=== PATIENT | male | born 1995 | race Two or more races ===

== ENCOUNTER 2024-08-25 15:11 | Observation (INO) | payer OTHER ==
[2024-08-25] MEDS ORDERED: ACETAMINOPHEN 500 MG TABLET (FP) PO ONE (17:04)
[2024-08-25 17:21] LABS: ABSOLUTE IMMATURE GRANULOCYTES 0.01 x10^3/uL (0.0-0.031); BASOPHILS # 0.09 x10^3/uL (0.01-0.08); EOSINOPHIL % 7.2 % (0.8-7.0); EOSINOPHILS # 0.44 x10^3/uL (0.04-0.54); HEMATOCRIT 42.3 % (40.1-51.0); HEMOGLOBIN 13.8 g/dL (13.7-17.5); MCHC 32.6 g/dl (32.3-36.5); MEAN CELL VOLUME 81.2 fl (79.0-92.2); MEAN PLT VOLUME 9.3 fl (9.4-12.4); MONOCYTE # 0.39 x10^3/uL (0.30-0.82); MONOCYTE % 6.4 % (5.3-12.2); PLATELET COUNT 208 x10^3/uL (163-337); RDW 13.8 % (11.9-15.3)
[2024-08-25] MEDS ORDERED: MECLIZINE HCL 25 MG TABLET (FP) ONE ×2 (17:27→18:59)
[2024-08-25] MEDS ORDERED: METOCLOPRAMIDE HCL INJECTION 10 MG/2 ML VIAL ONE (17:28)
[2024-08-25] MEDS ORDERED: ACETAMINOPHEN 325 MG TABLET (FP) ONE (17:28)
[2024-08-25 17:30] LABS: INR 1.02 (0.83-1.09); PROTHROMBIN TIME (PATIENT) 11.2 SEC (9.7-13.0)
[2024-08-25 17:33] LABS: ACTIVATED PTT 28.8 SECONDS (25.2-36.5)
[2024-08-25] MEDS: SODIUM CHLORIDE 0.9% 500 ML INFUS.BAG IV ONE ×2 (17:48→19:08)
[2024-08-25] MEDS: MECLIZINE HCL 25 MG TABLET (FP) PO ONE ×2 (17:48→19:08)
[2024-08-25] MEDS: ACETAMINOPHEN 1000 MG/100 ML BAG IVPB ONE (17:49)
[2024-08-25] MEDS: METOCLOPRAMIDE HCL INJECTION 10 MG/2 ML VIAL IVPB ONE (17:49)
[2024-08-25 18:09] LABS: POTASSIUM 4.2 mmol/L (3.5-5.1)
[2024-08-25 18:11] LABS: CALCIUM 9.8 mg/dL (8.5-10.1)
[2024-08-25 18:12] LABS: BLOOD UREA NITROGEN 11.8 mg/dL (7-18); MAGNESIUM 1.9 mg/dL (1.8-2.4)
[2024-08-25 18:15] LABS: PHOSPHOROUS 3.9 mg/dL (2.5-4.9)
[2024-08-25 18:16] LABS: BILIRUBIN,TOTAL 0.4 mg/dL (0.2-1); TOT PROT 7.2 g/dl (6.4-8.2)
[2024-08-25 19:17] LABS: HCV DIAGNOSTIC IN-HOUSE W/RFLX NON-REACTIVE (NONREACTIVE); HIV INTERPRETATION NEGATIVE (NEGATIVE)
[2024-08-25] MEDS ORDERED: NITROGLYCERIN SUBLINGUAL 1/150 0.4 MG TAB SL PRN (23:40)
[2024-08-26] MEDS ORDERED: ASPIRIN 81 MG CHEWABLE TABLETS ONE ×2 (00:38→00:46)
[2024-08-26] MEDS ORDERED: ENOXAPARIN NA (PORCINE) 40 MG/0.4 ML DISP.SYRIN SQ ONE (00:39)
[2024-08-26] MEDS: ASPIRIN 81 MG CHEWABLE TABLETS PO ONE (00:55)
[2024-08-26] MEDS: ENOXAPARIN NA (PORCINE) 30 MG/0.3 ML DISP.SYRIN SQ ONE ×2 (00:55→05:50)
[2024-08-26] MEDS: SODIUM CHLORIDE 1,000 ML IV SCH ×2 (01:35→05:29)
[2024-08-26] MEDS: MECLIZINE HCL 12.5 MG TABLET PO ONE (02:30)
[2024-08-26] MEDS ORDERED: ATROPINE SULFATE 1 MG/10 ML DISP.SYRIN IVPUSH PRN (03:09)
[2024-08-26] MEDS: MIDODRINE HCL 5 MG TABLET PO SCH (05:31)
[2024-08-26] MEDS: ASPIRIN 81 MG CHEWABLE TABLETS PO SCH (09:06)
[2024-08-26 10:21] LABS: ABSOLUTE IMMATURE GRANULOCYTES 0.01 x10^3/uL (0.0-0.031); BASOPHILS # 0.07 x10^3/uL (0.01-0.08); EOSINOPHIL % 8.3 % (0.8-7.0); HEMATOCRIT 38.3 % (40.1-51.0); HEMOGLOBIN 12.2 g/dL (13.7-17.5); MCHC 31.9 g/dl (32.3-36.5); MEAN CELL VOLUME 81.5 fl (79.0-92.2); MEAN PLT VOLUME 10.1 fl (9.4-12.4); MONOCYTE # 0.28 x10^3/uL (0.30-0.82); MONOCYTE % 5.8 % (5.3-12.2); PLATELET COUNT 202 x10^3/uL (163-337); RDW 14.1 % (11.9-15.3)
[2024-08-26 10:27] VITALS: BP 102/60; PULSE 43; RESP 16; TEMP 98.4
[2024-08-26 10:42] LABS: POTASSIUM 3.9 mmol/L (3.5-5.1)
[2024-08-26 10:44] LABS: CALCIUM 9.4 mg/dL (8.5-10.1)
[2024-08-26 10:45] LABS: ALBUMIN 3.4 g/dl (3.4-5.0); BLOOD UREA NITROGEN 9.6 mg/dL (7-18)
[2024-08-26 10:48] LABS: CREATININE 0.8 mg/dL (0.55-1.3)
[2024-08-26 10:50] LABS: TOT PROT 5.7 g/dl (6.4-8.2)
[2024-08-26 11:04] LABS: BILIRUBIN,TOTAL 0.6 mg/dL (0.2-1)
[2024-08-26] MEDS: CYANOCOBALAMIN (VITAMIN B-12) 1000 MCG/1 ML VIAL IM ONE (14:27)
[2024-08-26] MEDS ORDERED: ATORVASTATIN CA 40 MG TABLET (FP) PO SCH (22:00)
[2024-08-26] MEDS ORDERED: ENOXAPARIN NA (PORCINE) 40 MG/0.4 ML DISP.SYRIN SQ SCH (23:50)
== END 2024-08-26 15:10 | disposition home or self-care (01) ==
LOC: JER 15:11 → JERBED 22:31 → J4W 08-26 01:03
PROVIDERS: ADMIT Hospitalist; ATTEND Internal Medicine
PROC: 3E033NZ Introduction of Analgesics, Hypnotics, Sedatives into Peripheral Vein, Percutaneous Approach (ICD-10-PCS; principal; 2024-08-25)
PROC: 3E023GC Introduction of Other Therapeutic Substance into Muscle, Percutaneous Approach (ICD-10-PCS; 2024-08-25)
PROC: 3E0337Z Introduction of Electrolytic and Water Balance Substance into Peripheral Vein, Percutaneous Approach (ICD-10-PCS; 2024-08-25)
DX: R00.1 Bradycardia, unspecified (principal); I95.9 Hypotension, unspecified; G93.1 Anoxic brain damage, not elsewhere classified; F79 Unspecified intellectual disabilities; H02.402 Unspecified ptosis of left eyelid; Z91.013 Allergy to seafood
CPT/HCPCS: 0241U-QW; 36415; 70450-TC; 71045-TC-FY; 80053; 82607; 82962; 83735; 84100; 84439; 84443; 84484; 85025; 85610; 85730; 86618; 86803; 87389; 93005; 93010; 96361; 96372; 96374; 96375; 99285-25; G0378

== ENCOUNTER 2024-11-07 20:42 | Observation (INO) | payer OTHER ==
[2024-11-07] MEDS ORDERED: LORazepam 2 MG/ML SDV VIAL ONE (20:47)
[2024-11-07 21:19] LABS: ABSOLUTE IMMATURE GRANULOCYTES 0.01 x10^3/uL (0.0-0.031); BASOPHILS # 0.05 x10^3/uL (0.01-0.08); EOSINOPHIL % 6.0 % (0.8-7.0); EOSINOPHILS # 0.38 x10^3/uL (0.04-0.54); MCHC 31.7 g/dl (32.3-36.5); MEAN CELL VOLUME 81.9 fl (79.0-92.2); MEAN PLT VOLUME 9.7 fl (9.4-12.4); MONOCYTE # 0.37 x10^3/uL (0.30-0.82); MONOCYTE % 5.9 % (5.3-12.2); RDW 13.9 % (11.9-15.3)
[2024-11-07 21:20] LABS: BG HCT 45.0 % (35.4-49); VENOUS BASE EXCESS 0.8 mmol/L (-2-2); VENOUS O2 SATURATION 53.9 % (70-80); VENOUS PCO2 50.5 mmHg (38-52); VENOUS PH 7.351 (7.310-7.410)
[2024-11-07 21:26] LABS: INR 1.01 (0.83-1.09); PROTHROMBIN TIME (PATIENT) 11.1 SEC (9.7-13.0)
[2024-11-07 21:29] LABS: ACTIVATED PTT 24.5 SECONDS (25.2-36.5)
[2024-11-07 21:33] LABS: GLUCOSE,RANDOM 111.0 mg/dL (74-106); TOT PROT 7.2 g/dl (6.4-8.2)
[2024-11-07 21:34] LABS: CO2 25.0 mmol/L (21-32)
[2024-11-07 21:35] LABS: ALK PHOS 89.0 U/L (40-150)
[2024-11-07 21:38] LABS: SGOT/AST 21.0 U/L (5-34); SGPT/ALT 14.0 U/L (0-55)
[2024-11-07 21:39] LABS: CREATININE 0.96 mg/dL (0.55-1.3)
[2024-11-07] MEDS ORDERED: MAGNESIUM SULFATE IN WATER 2 GM/50 ML IVPB IVPB ONE (22:13)
[2024-11-07] MEDS: SODIUM CHLORIDE 0.9% 500 ML INFUS.BAG IV ONE (22:15)
[2024-11-07] MEDS: MAGNESIUM SULF 50% (8.12 MEQ/2 ML-1 GM VIAL) IVPB ONE (22:15)
[2024-11-08] MEDS ORDERED: LORazepam 2 MG/ML SDV VIAL IVPUSH PRN (02:03)
[2024-11-08] MEDS: levETIRAcetam 500 MG/5 ML INJECTION VIAL IVPB ONE (02:43)
[2024-11-08 03:33] VITALS: BMI 16.2
[2024-11-08 08:35] LABS: URINE APPEARANCE CLEAR; URINE BILIRUBIN NEGATIVE (NEGATIVE); URINE COLOR YELLOW; URINE GLUCOSE (UA) NEGATIVE (NEGATIVE); URINE KETONE NEGATIVE (NEGATIVE); URINE LEUK ESTERASE NEGATIVE (NEGATIVE); URINE NITRITE NEGATIVE (NEGATIVE); URINE PROTEIN NEGATIVE (NEGATIVE); URINE UROBILINOGEN 0.2 mg/dL (0.2-1.0)
[2024-11-08 08:45] LABS: MCHC 31.4 g/dl (32.3-36.5); MEAN CELL VOLUME 83.0 fl (79.0-92.2); MEAN PLT VOLUME 9.4 fl (9.4-12.4); RDW 14.1 % (11.9-15.3)
[2024-11-08 09:03] LABS: COCAINE, UR NEGATIVE (NEGATIVE)
[2024-11-08 09:04] LABS: OPIATES, URI NEGATIVE (NEGATIVE); PHENCYCLIDINE,URINE NEGATIVE (NEGATIVE); URINE AMPHETAMINES NEGATIVE (NEGATIVE); URINE BARBITURATES NEGATIVE (NEGATIVE); URINE BENZODIAZEPINES NEGATIVE (NEGATIVE)
[2024-11-08 09:05] LABS: METHADONE, UR NEGATIVE (NEGATIVE)
[2024-11-08 09:21] LABS: CO2 25.0 mmol/L (21-32); TOT PROT 6.2 g/dl (6.4-8.2)
[2024-11-08 09:23] LABS: ALK PHOS 72.0 U/L (40-150)
[2024-11-08 09:26] LABS: CREATININE 0.92 mg/dL (0.55-1.3); SGOT/AST 17.0 U/L (5-34); SGPT/ALT 13.0 U/L (0-55)
[2024-11-08 09:30] LABS: GLUCOSE,RANDOM 99.0 mg/dL (74-106)
[2024-11-08] MEDS ORDERED: levETIRAcetam 500 MG TABLET (FP) PO SCH (10:00)
[2024-11-08] MEDS: ENOXAPARIN NA (PORCINE) 40 MG/0.4 ML DISP.SYRIN SQ SCH (10:33)
[2024-11-08] MEDS: SODIUM CHLORIDE 0.9% 500 ML INFUS.BAG IV ONE (10:36)
[2024-11-08] MEDS: levETIRAcetam 500 MG TABLET (FP) PO SCH (13:39)
[2024-11-08 13:55] LABS: HIV INTERPRETATION NEGATIVE (NEGATIVE)
[2024-11-08 13:58] LABS: HCV DIAGNOSTIC IN-HOUSE W/RFLX NON-REACTIVE (NONREACTIVE)
[2024-11-09 14:17] VITALS: BP 89/67; PULSE 47; RESP 18; TEMP 97.7
== END 2024-11-09 14:43 | disposition home or self-care (01) ==
LOC: JER 20:42 → JERBED 23:23 → OBSVTOIN 11-08 01:50 → INTOOBSV 11-08 01:50 → J7W 11-08 02:19
PROVIDERS: ADMIT Hospitalist; ATTEND Student in an Organized Health Care Education/Training Program
PROC: 3E0337Z Introduction of Electrolytic and Water Balance Substance into Peripheral Vein, Percutaneous Approach (ICD-10-PCS; principal; 2024-11-07)
PROC: 3E033GC Introduction of Other Therapeutic Substance into Peripheral Vein, Percutaneous Approach (ICD-10-PCS; 2024-11-07)
PROC: 3E033NZ Introduction of Analgesics, Hypnotics, Sedatives into Peripheral Vein, Percutaneous Approach (ICD-10-PCS; 2024-11-07)
DX: R56.9 Unspecified convulsions (principal); F79 Unspecified intellectual disabilities; G93.1 Anoxic brain damage, not elsewhere classified; Z90.49 Acquired absence of other specified parts of digestive tract; Z87.891 Personal history of nicotine dependence
CPT/HCPCS: 36415; 70450-TC; 71045-TC-FY; 80053; 80307; 81003; 82803; 82962; 83605; 83735; 84100; 84484; 85025; 85027; 85610; 85730; 86803; 86850; 86900; 86901; 87086; 87389; 93005; 93010; 93306-TC; 95816; 99285-25; G0378

== ENCOUNTER 2024-12-03 12:00 | Inpatient (IN) | payer OTHER ==
[2024-12-03] MEDS ORDERED: MIDAZOLAM HCL 2 MG/2 ML SINGLE DOSE VIAL ONE ×2 (12:03→12:06)
[2024-12-03] MEDS: MIDAZOLAM HCL 2 MG/2 ML SINGLE DOSE VIAL IVPUSH ONE (12:08)
[2024-12-03] MEDS ORDERED: levETIRAcetam 500 MG/5 ML INJECTION VIAL IVPB ONE (12:10)
[2024-12-03] MEDS: levETIRAcetam 500 MG/5 ML INJECTION VIAL IVPB ONE (12:17)
[2024-12-03 13:13] LABS: BG HCT 42.0 % (35.4-49); VENOUS BASE EXCESS -2.9 mmol/L (-2-2); VENOUS O2 SATURATION 75.1 % (70-80); VENOUS PCO2 47.4 mmHg (38-52); VENOUS PH 7.314 (7.310-7.410)
[2024-12-03 13:35] LABS: ABSOLUTE IMMATURE GRANULOCYTES 0.01 x10^3/uL (0.0-0.031); BASOPHILS # 0.06 x10^3/uL (0.01-0.08); EOSINOPHIL % 4.8 % (0.8-7.0); EOSINOPHILS # 0.25 x10^3/uL (0.04-0.54); MCHC 31.6 g/dl (32.3-36.5); MEAN CELL VOLUME 82.4 fl (79.0-92.2); MEAN PLT VOLUME 9.2 fl (9.4-12.4); MONOCYTE # 0.44 x10^3/uL (0.30-0.82); MONOCYTE % 8.5 % (5.3-12.2); RDW 13.9 % (11.9-15.3)
[2024-12-03 13:43] LABS: INR 1.13 (0.83-1.09); PROTHROMBIN TIME (PATIENT) 12.4 SEC (9.7-13.0)
[2024-12-03 13:46] LABS: ACTIVATED PTT 27.5 SECONDS (25.2-36.5)
[2024-12-03 13:57] LABS: GLUCOSE,RANDOM 67.0 mg/dL (74-106); TOT PROT 6.4 g/dl (6.4-8.2)
[2024-12-03 13:58] LABS: CO2 24.0 mmol/L (21-32)
[2024-12-03 14:00] LABS: ALK PHOS 73.0 U/L (40-150)
[2024-12-03 14:02] LABS: SGOT/AST 15.0 U/L (5-34); SGPT/ALT 7.0 U/L (0-55)
[2024-12-03 14:03] LABS: CREATININE 0.91 mg/dL (0.55-1.3)
[2024-12-03] MEDS ORDERED: DEXTROSE 50%-WATER 25 GM/50 ML DISP.SYRIN ONE (14:19)
[2024-12-03] MEDS: DEXTROSE 50%-WATER 25 GM/50 ML DISP.SYRIN IVPUSH ONE (14:25)
[2024-12-03] MEDS: SODIUM CHLORIDE 0.9% 500 ML INFUS.BAG IV ONE (14:52)
[2024-12-03] MEDS ORDERED: diazePAM RECTAL GEL 5 MG KIT (PRE-CALIBRATED) RC PRN (15:30)
[2024-12-03] MEDS: SODIUM CHLORIDE 1,000 ML IV SCH (16:06)
[2024-12-03 17:05] VITALS: BMI 18.1
[2024-12-03] MEDS: levETIRAcetam 500 MG TABLET (FP) PO SCH (21:22)
[2024-12-03 22:42] LABS: URINE APPEARANCE CLEAR; URINE BILIRUBIN NEGATIVE (NEGATIVE); URINE COLOR YELLOW; URINE GLUCOSE (UA) NEGATIVE (NEGATIVE); URINE KETONE NEGATIVE (NEGATIVE); URINE LEUK ESTERASE NEGATIVE (NEGATIVE); URINE NITRITE NEGATIVE (NEGATIVE); URINE PROTEIN NEGATIVE (NEGATIVE); URINE UROBILINOGEN 1.0 mg/dL (0.2-1.0)
[2024-12-03 23:36] LABS: COCAINE, UR NEGATIVE (NEGATIVE)
[2024-12-03 23:37] LABS: METHADONE, UR NEGATIVE (NEGATIVE); PHENCYCLIDINE,URINE NEGATIVE (NEGATIVE); URINE AMPHETAMINES NEGATIVE (NEGATIVE); URINE BARBITURATES NEGATIVE (NEGATIVE); URINE BENZODIAZEPINES POSITIVE (NEGATIVE)
[2024-12-03 23:53] LABS: OPIATES, URI NEGATIVE (NEGATIVE)
[2024-12-04] MEDS ORDERED: LORazepam 2 MG/ML SDV VIAL IVPUSH PRN (02:28)
[2024-12-04] MEDS: LORazepam 2 MG/ML SDV VIAL IVPUSH ONE (03:07)
[2024-12-04] MEDS ORDERED: SODIUM CHLORIDE 1,000 ML IV SCH (08:10)
[2024-12-04] MEDS ORDERED: diazePAM RECTAL GEL 5 MG KIT (PRE-CALIBRATED) RC PRN (08:10)
[2024-12-04 08:21] LABS: ABSOLUTE IMMATURE GRANULOCYTES 0.01 x10^3/uL (0.0-0.031); BASOPHILS # 0.05 x10^3/uL (0.01-0.08); EOSINOPHIL % 5.0 % (0.8-7.0); EOSINOPHILS # 0.23 x10^3/uL (0.04-0.54); MCHC 32.0 g/dl (32.3-36.5); MEAN CELL VOLUME 81.6 fl (79.0-92.2); MEAN PLT VOLUME 9.8 fl (9.4-12.4); MONOCYTE # 0.28 x10^3/uL (0.30-0.82); MONOCYTE % 6.1 % (5.3-12.2); RDW 13.6 % (11.9-15.3)
[2024-12-04] MEDS: LORazepam 2 MG/ML SDV VIAL IVPUSH PRN (08:54)
[2024-12-04 09:21] LABS: GLUCOSE,RANDOM 91.0 mg/dL (74-106); TOT PROT 6.1 g/dl (6.4-8.2)
[2024-12-04 09:22] LABS: CO2 23.0 mmol/L (21-32)
[2024-12-04 09:24] LABS: ALK PHOS 61.0 U/L (40-150)
[2024-12-04 09:26] LABS: SGPT/ALT 8.0 U/L (0-55)
[2024-12-04 09:27] LABS: SGOT/AST 14.0 U/L (5-34)
[2024-12-04] MEDS ORDERED: ENOXAPARIN NA (PORCINE) 40 MG/0.4 ML DISP.SYRIN SQ SCH (10:00)
[2024-12-04 11:10] LABS: CREATININE 0.85 mg/dL (0.55-1.3)
[2024-12-04] MEDS: levETIRAcetam 500 MG/5 ML INJECTION VIAL IVPB SCH (12:20)
[2024-12-04] MEDS: ENOXAPARIN NA (PORCINE) 40 MG/0.4 ML DISP.SYRIN SQ SCH (12:20)
[2024-12-04] MEDS: levETIRAcetam 500 MG TABLET (FP) PO SCH (12:21)
[2024-12-04] MEDS: MAGNESIUM 2GM/50ML STERILE WATER IVPB IVPB ONE (15:30)
[2024-12-04 15:36] VITALS: BP 93/59; PULSE 71; RESP 17; TEMP 97.9
[2024-12-04] MEDS ORDERED: levETIRAcetam 500 MG/5 ML INJECTION VIAL IVPB SCH (22:00)
== END 2024-12-04 17:12 | disposition short-term general hospital (02) | DRG 53 ==
LOC: JER 12:00 → JERBED 13:46 → J8W 16:44 → J4S 12-04 05:47 → OBSVTOIN 12-04 13:22
PROVIDERS: ADMIT Student in an Organized Health Care Education/Training Program; ATTEND Internal Medicine
DX: R56.9 Unspecified convulsions (principal); F79 Unspecified intellectual disabilities; G93.1 Anoxic brain damage, not elsewhere classified; H02.409 Unspecified ptosis of unspecified eyelid; R53.83 Other fatigue
CPT/HCPCS: 36415; 70450-TC; 71045-TC-FY; 80053; 80307; 81003; 82550; 82803; 82962; 83605; 83735; 84100; 84146; 84443; 84484; 85025; 85610; 85730; 86850; 86900; 86901; 93005; 93010; 99291; G0378